=== PATIENT | female | born 1985 | race American Indian/Alaskan Native ===

== ENCOUNTER 2018-07-09 09:21 | Emergency (ER) | payer BC, OTHER ==
[2018-07-09 09:48] VITALS: BP 153/96
[2018-07-09] MEDS ORDERED: IBUPROFEN PO ONE (10:13)
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
--- NOTE | 2018-07-09 11:07 | XRay Report ---
LUMBOSACRAL SPINE, 3 VIEWS: History: Back pain Findings: The vertebral bodies, disk spaces and posterior elements are intact. No compression deformity or malalignment. The SI joints are symmetric and unremarkable. Impression: Unremarkable lumbar spine films.
--- NOTE | 2018-07-09 11:07 | XRay Report ---
BILATERAL RIBS, 4 views: History: Pain. Routine views of the rib cage demonstrate normal mineralization with no significant contour abnormalities, fractures or destructive lesions. PA view of the chest demonstrates no underlying cardiopulmonary abnormalities, fluid or pneumothorax. IMPRESSION: Unremarkable bilateral ribs.
== END 2018-07-09 11:53 | disposition home or self-care (01) ==
LOC: ED 09:21
DX: R07.89 Other chest pain (principal); V89.2XXA Person injured in unspecified motor-vehicle accident, traffic, initial encounter; Y93.89 Activity, other specified; Y92.410 Unspecified street and highway as the place of occurrence of the external cause; Y99.8 Other external cause status
CPT/HCPCS: 71111; 72100; 93005; 93010